=== PATIENT | female | born 1985 | race Caucasian/White ===

== ENCOUNTER 2018-07-17 11:40 | Outpatient (CLI) | payer OTHER ==
[~2018-07-17] VITALS: Ht 157.5 cm; Wt 89.2 kg
[~2018-07-17 11:40] MED LIST: HYDR-4011 PO; METH500T24 PO; PREN1TAB49
[2018-07-17 11:46] VITALS: Ht 157.5 cm; Wt 89.2 kg
--- NOTE | 2018-07-17 13:33 | PN ---
Triage Information Date/Time Reason for visit: DFM Weeks of Gestation This is a 33-year-old 2 para 1 at 26 weeks and 8 days of gestation with estimated date of delivery October 22, 2018 She presents with chief complaint of decreased movement Patient denies uterine contractions, denies vaginal bleeding or leaking fluid Past obstetrical history significant for for preeclampsia at 31 weeks of gestation /Para 2 para 1 Diabetes: none Hypertention: none Objective Heart Rate: 140's Heart Rate Comments heart rate tracing appropriate for gestational age Contractions: None Results/Medications Imaging Results PROCEDURE: US OB. CLINICAL INDICATION: Decreased movement TECHNIQUE: Multiple sonographic images of the pelvis were obtained. The images were reviewed on a PACS workstation. COMPARISON: No prior studies are available for comparison. FINDINGS: There is a single live intrauterine . cardiac activity is identified at a rate of 154 beats per minute. presentation is cephalic. Placenta is anterior grade 1. Biophysical profile score is as follows: Breathing 2 Movements 2 Tone 2 Fluid volume 2 Amniotic fluid index = 12.4 cm Total biophysical profile score = 8/8 IMPRESSION: Biophysical profile score = 8/8 RPTAT: HH .Fransisco Gan MD, Date Time Electronically viewed and signed by .Fransisco aGn MD, on 07/17/2018 12:26 .W/ CC: JP LOWERY MD [id number] PROCEDURE: Obstetric ultrasound CLINICAL INDICATION: Pain TECHNIQUE: Multiple transverse and longitudinal grayscale images of the pelvis were obtained transvaginally.. COMPARISON: same day FINDINGS: The cervix is closed with a length of 3.8 cm. RPTAT: AA IMPRESSION: Cervix length measures 3.8 cm. .Soy Beverly MD, Date Time Electronically viewed and signed by .Soy Beverly MD, MD on 07/17/2018 13:03 .S/ CC: JP LOWERY MD [phone] Disposition: Discharge Assessment/Plan Patient counseled to increase p.o. hydration kick count instructions were given Patient instructed to return in 48 hours for repeat NST and BPP Patient instructed to follow-up with her own CHIEF RELAY TESTER in 1 to 2 days JAMISON ALVARES MD July 17, 2018 13:33
== END 2018-07-17 13:28 | disposition home or self-care (01) ==
LOC: L-D 11:40 → OBT 11:40
PROVIDERS: ATTEND Obstetrics & Gynecology
DX: O36.8120 Decreased fetal movements, second trimester, not applicable or unspecified (principal); Z3A.26 26 weeks gestation of pregnancy
CPT/HCPCS: 76817; 76818; Z7500; G0463

== ENCOUNTER 2018-07-19 11:03 | Outpatient (CLI) | payer OTHER ==
[~2018-07-19] VITALS: Ht 160 cm; Wt 88.4 kg
[~2018-07-19 11:03] MED LIST changes: -HYDR-4011 PO; -METH500T24 PO
[2018-07-19 11:45] VITALS: BP 100/61; Ht 160 cm; Wt 88.4 kg
[2018-07-19] MEDS ORDERED: LABE200T25 PO (11:47)
--- NOTE | 2018-08-06 16:57 | PN ---
Triage Information Date/Time Reason for visit: DFM Weeks of Gestation 27 weeks and 1 day /Para -0-0-1 Diabetes: none Hypertention: none Objective Heart Rate: 140's Contractions: None Disposition: Discharge Assessment/Plan 33 years old -0-0-1 with single intrauterine at 27 weeks and 1 day with a KAZ of 10/17/2018 complaining of decreased movement. She denies nausea, vomiting, shortness of breath, chest pain, headache, visual changes, vaginal bleeding or LOF. -FHR: No sign of metabolic acidosis- Category I -Contractions: None -Ultrasound performed: Normal SANDRA -Symptoms and sign of labor, preeclampsia, kick count discussed with patient, she voiced understanding. All of her questions answered. -Patient was discharged home in stable condition with the appropriate discharge instructions provided. I would like patient to have close follow-up with her primary physician or outpatient clinic in 1-2 days or return to triage for worsening symptoms or any other urgent concerns. NAV ELMORE Aug 06, 2018 16:57
== END 2018-07-19 12:44 | disposition home or self-care (01) ==
LOC: OBT 11:03 → L-D 11:04 → OBT 12:44
PROVIDERS: ATTEND Obstetrics & Gynecology
DX: O36.8120 Decreased fetal movements, second trimester, not applicable or unspecified (principal); Z3A.27 27 weeks gestation of pregnancy
CPT/HCPCS: 76818; Z7500; G0463

== ENCOUNTER 2018-09-27 13:45 | Outpatient (CLI) | payer OTHER ==
[~2018-09-27 13:45] MED LIST changes: +ACET325T33 PO; +IBUP800T48 PO; +LABE200T25 PO; +METF500T3 PO
--- NOTE | 2018-09-27 16:25 | TRIAGE ---
OB Triage Datetime Report Generated by CPN: 09/27/2018 16:25 Datetime: 09/27/2018 16:05 EGA: 36.3 Datetime: 09/27/2018 15:00 Stage of : OB Triage Maternal Assessment Level of Consciousness: Keenly Alert, Responsive Labor Evaluation Frequency: 3UC/HR Monitor Mode: External Duration (sec)2399: 50-70 Quality: Mild Resting Tone [place]: Relaxed Heart Rate FHR Baseline Rate: 135 Monitor Mode: External US Variability: Moderate 6-25 bpm Accelerations: 15X15 Decelerations: None Category: Category I Pain Assessment Pain Scale: 0 Pain Goal: 3 Vaginal Exam Membrane Status: Intact Vaginal Bleeding: None Datetime: 09/27/2018 14:04 Assessment Type: Triage Maternal Assessment Level of Consciousness: DTR's/Clonus: DTRs 2+; No Clonus Headache: Denies Blurred Vision: No Respiratory Effort: Unlabored; Regular Rhythm; Equal Expansion Breath Sounds, Left: Clear and Equal Breath Sounds, Right: Clear and Equal Nausea/Vomiting: Denies RUQ Epigastric Pain: Denies Lower Extremities Edema: None Degree: None Upper Extremities Edema: None Degree: None Facial Edema: None Fall Risk Assessment History of Falling: (0) No Secondary Diagnosis: (0) No Ambulatory Aid: (0) Bedrest/Nurse Assist IV Therapy: (0) No Gait: (0) Normal/Bedrest/Immobile Mental Status: (0) Oriented to Own Ability Fall Score: 0 Fall Risk Score Definition: No Risk: No action required Datetime: 09/27/2018 14:03 Time of Arrival: 09/27/2018 13:34 EGA: 37.0 Arrived By: Ambulatory Arrived From: Office Chief Complaint: PT. SENT IN FOR EVAL. OF HBP Movement: Present Contractions: Denies/Absent Rupture of Membranes: Denies Vaginal Bleeding: None Vaginal Discharge: Denies Recent Sexual Intercouse: Denies Abdominal Trauma: Not Applicable Patient Complaints: None Time Provider Notified: 09/27/2018 15:37 Provider Notified: MONTSERRAT Initial Plan: BPP/EFW/PIH PANEL Datetime: 09/27/2018 14:02 Monitor Mode: External Monitor Mode: External US Datetime: 07/19/2018 11:46 Stage of : OB Triage Labor Evaluation Frequency: 0 Monitor Mode: External Pattern: Normal: <= 5 Contractions in 10 Minutes Resting Tone [place]: Relaxed Heart Rate FHR Baseline Rate: 145 Monitor Mode: External US Variability: Moderate 6-25 bpm Accelerations: 10X10 Decelerations: None Category: Category II Pain Presence: None/Denies Datetime: 07/19/2018 11:36 Stage of : OB Triage Assessment Type: Triage Time of Arrival: 07/19/2018 10:56 EGA: 27.0 Arrived By: Ambulatory Arrived From: Home Chief Complaint: F/UP NST BPP FOR DFM Movement: Decreased Contractions: Denies/Absent Rupture of Membranes: Denies Vaginal Bleeding: None Vaginal Discharge: Denies Recent Sexual Intercouse: Denies Abdominal Trauma: Not Applicable Patient Complaints: None Time Provider Notified: 07/19/2018 12:35 Provider Notified: dr. palm Initial Plan: NST BPP Maternal Assessment Level of Consciousness: Fully Conscious DTR's/Clonus: DTRs 2+; No Clonus Headache: Denies Blurred Vision: No Respiratory Effort: Unlabored; Regular Rhythm; Equal Expansion Breath Sounds, Left: Clear and Equal Breath Sounds, Right: Clear and Equal Nausea/Vomiting: Denies RUQ Epigastric Pain: Denies Lower Extremities Edema: None Degree: None Upper Extremities Edema: None Degree: None Facial Edema: None Fall Risk Assessment History of Falling: (0) No Secondary Diagnosis: (0) No Ambulatory Aid: (0) Bedrest/Nurse Assist IV Therapy: (0) No Gait: (0) Normal/Bedrest/Immobile Mental Status: (0) Oriented to Own Ability Fall Score: 0 Fall Risk Score Definition: No Risk: No action required Monitor Mode: External Monitor Mode: External US Pain Assessment Pain Scale: 0 Pain Presence: None/Denies Pain Assessment Comments: 0 0 Datetime: 07/17/2018 13:17 Labor Evaluation Frequency: 0 Monitor Mode: External Heart Rate FHR Baseline Rate: 140 Monitor Mode: External US FHR Baseline Changes: No Baseline Change Variability: Moderate 6-25 bpm Accelerations: 15X15 Decelerations: None Category: Category I Pain Presence: None/Denies Datetime: 07/17/2018 11:57 EGA: 26.5 Datetime: 07/17/2018 11:45 Assessment Type: Triage Maternal Assessment Level of Consciousness: Fully Conscious DTR's/Clonus: DTRs 2+; No Clonus Headache: Denies Blurred Vision: No Respiratory Effort: Unlabored; Regular Rhythm; Equal Expansion Breath Sounds, Left: Clear and Equal Breath Sounds, Right: Clear and Equal Nausea/Vomiting: Denies RUQ Epigastric Pain: Denies Lower Extremities Edema: None Degree: None Upper Extremities Edema: None Degree: None Facial Edema: None Fall Risk Assessment History of Falling: (0) No Secondary Diagnosis: (0) No Ambulatory Aid: (0) Bedrest/Nurse Assist IV Therapy: (0) No Gait: (0) Normal/Bedrest/Immobile Mental Status: (0) Oriented to Own Ability Fall Score: 0 Fall Risk Score Definition: No Risk: No action required Datetime: 07/17/2018 11:31 Time of Arrival: 07/17/2018 11:31 EGA: 26.1 Chief Complaint: PT CAME IN C/O DFM SINCE LAST NIGHT Movement: Decreased Contractions: Denies/Absent Additional Patient Complaints: NONE Time Provider Notified: 07/17/2018 11:48 Provider Notified: MONTSERRAT Initial Plan: NST, BPP
--- NOTE | 2018-09-27 18:58 | PN ---
Triage Information Date/Time Reason for visit: Antepartum testing care for chronic hypertension Weeks of Gestation 36 weeks 3 days /Para -0-0-1 Diabetes: none Hypertention: essential Objective Heart Rate: 140's Contractions: None Results/Medications Result Diagram: 09/27/18 1429 09/27/18 1429 Results 24 hrs Laboratory Tests Test 09/27/18 13:45 09/27/18 14:29 Urine Color YELLOW Urine Clarity SLIGHTLY CLOUDY A Urine pH 6.0 Urine Specific [place] 1.010 Urine Ketones NEGATIVE Urine Nitrite NEGATIVE Urine Bilirubin NEGATIVE Urine Urobilinogen NEGATIVE Urine Leukocyte Esterase NEGATIVE Urine Microscopic RBC 0 Urine Microscopic WBC 2 Urine Bacteria FEW A Urine Hemoglobin NEGATIVE Urine Glucose NEGATIVE Urine Total Protein NEGATIVE White Blood Count 6.8 # Red Blood Count 4.43 Hemoglobin 12.9 Hematocrit 37.9 Mean Corpuscular Volume 85.6 Mean Corpuscular Hemoglobin 29.1 Mean Corpuscular Hemoglobin Concent 34.0 Red Cell Distribution Width 13.1 Platelet Count 197 Mean Platelet Volume 10.0 # Immature Granulocytes % 0.400 Neutrophils % 70.5 Lymphocytes % 20.6 Monocytes % 7.5 Eosinophils % 0.7 Basophils % 0.3 Nucleated Red Blood Cells % 0.0 Immature Granulocytes # 0.030 Neutrophils # 4.8 Lymphocytes # 1.4 Monocytes # 0.5 Eosinophils # 0.1 Basophils # 0.0 Nucleated Red Blood Cells # 0.0 Prothrombin Time 11.8 L Prothrombin Time Ratio 0.9 INR International Normalized Ratio 0.86 Activated Partial Thromboplast Time 31.2 Fibrinogen 634.0 H Sodium Level 137 Potassium Level 4.4 Chloride Level 105 Carbon Dioxide Level 25 Anion Gap 7 Blood Urea Nitrogen 11 Creatinine 0.75 Est Glomerular Filtrat Rate mL/min > 60 Glucose Level 98 Uric Acid 5.9 Calcium Level 9.9 Total Bilirubin 0.3 Direct Bilirubin 0.00 Indirect Bilirubin 0.3 Aspartate Amino Transf (AST/SGOT) 25 Alanine Aminotransferase (ALT/SGPT) 24 Alkaline Phosphatase 74 Total Protein 6.8 Albumin 3.6 Globulin 3.20 Albumin/Globulin Ratio 1.12 Disposition: Discharge Assessment/Plan 33 years old -0-0-1 with single intrauterine at 36 weeks and 3 days with chronic hypertension and previous delivery referred to triage for elevated blood pressure reading off phase antepartum test. She states good movement. She denies nausea, vomiting, shortness of breath, chest pain, headache, visual changes, vaginal bleeding or LOF. -FHR: No sign of metabolic acidosis- Category I -Contractions: None -She is currently on labetalol 200 mg twice daily, recommend continue labetalol with same dose -She has been scheduled for repeat at 37 weeks -Ultrasound performed: Normal SANDRA, BPP 8 out of 8 -Symptoms and sign of labor, preeclampsia, kick count discussed with patient, she voiced understanding. All of her questions answered. -Patient was discharged home in stable condition with the appropriate discharge instructions provided. I would like patient to have close follow-up with her primary physician or outpatient clinic in 1-2 days or return to triage for worsening symptoms or any other urgent concerns. NAV ELMORE Sep 27, 2018 18:58
== END 2018-09-27 16:35 | disposition home or self-care (01) ==
LOC: OBT 13:45 → L-D 13:45 → OBT 16:35
PROVIDERS: ATTEND Obstetrics & Gynecology
DX: O10.013 Pre-existing essential hypertension complicating pregnancy, third trimester (principal); Z3A.36 36 weeks gestation of pregnancy
CPT/HCPCS: 76815; 76818; 80053; 81001; 81003; 84560; 85025; 85384; 85610; 85730; G0463

== ENCOUNTER 2018-10-02 12:10 | Inpatient (IN) | payer OTHER ==
[~2018-10-02] VITALS: Ht 157.5 cm; Wt 93.8 kg
--- NOTE | 2018-10-02 12:35 | PREAC ---
Date/Time of Note Date/Time of Note DATE: 10/02/18 TIME: 12:34 Anesthesia Eval and Record Evaluation Time Pre-Procedure Interview DATE: 10/02/18 TIME: 12:34 Age 33 Sex female NPO: 8 hrs Preoperative diagnosis repeat c section Planned procedure csection Past Medical History Past Medical History: Includes Cardio: HTN : Gestational age: (37.1), Gestational diabetes Surgery & Anesthesia Issues No known issue Meds Anticoagulation: No Beta Mitchell within 24 hr: No Reason Beta Mitchell not given: Pt. not on B-Mitchell Reported Medications Labetalol Hcl* (Labetalol Hcl*) 200 Mg Tablet, 200 MG PO BID, TAB 07/19/18 Vits W-Ca,Fe,Fa(<1MG) () 1 Tab Tablet, DAILY 03/23/11 Meds reviewed: Yes Allergies Uncoded Allergies: NKDA (Allergy, Unknown, 04/14/18) Allergies Reviewed: Yes Labs/Studies Labs Reviewed: Reviewed by anesthesiologist test: Positive Studies: ECG (n/a), CXR (n/a) Pre-procedure Exam Airway: Adequate mouth opening Mallampati: Mallampati I Teeth: Normal Lung: Normal Heart: Normal ASA Physical Status ASA physical status: 2 Emergency: None Planned Anesthetic Neuraxial: Spinal Planned Pain Management Single shot nerve block Pre-operative Attestations Prior to commencing anesthesia and surgery, the patient was re-evaluated, there was verification of: *The patient's identity *The results of appropriate recent lab work and preoperative vital signs *The above evaluation not changing prior to induction *Anesthetic plan, risk benefits, alternative and complications discussed with patient/family; questions answered; patient/family understands, accepts and wis hes to proceed. RODOLFO AMADOR MD Oct 02, 2018 12:35
[2018-10-02] MEDS ORDERED: LACTATED RINGER'S 1,000 ML IV SCH ×2 (12:37→18:45)
[2018-10-02 12:40] VITALS: Ht 157.5 cm; Wt 93.8 kg
[2018-10-02 12:46] VITALS: BP 140/74; PULSE 74; RESP 18
[2018-10-02] MEDS ORDERED: CITRIC ACID/NA CITRATE 30 ML CUP PO ONE (13:00)
[2018-10-02] MEDS ORDERED: METHYLERGONOVINE 0.2 MG INJ IM PRN ×2 (13:00→19:00)
[2018-10-02] MEDS ORDERED: CARBOPROST 250 MCG INJ IM PRN ×2 (13:00→19:00)
[2018-10-02] MEDS ORDERED: CEFAZOLIN 2 GM/50 ML (PMX) 50 ML IVPB SCH (13:00)
[2018-10-02] MEDS ORDERED: MISOPROSTOL 200 MCG TAB PR PRN ×2 (13:00→19:00)
[2018-10-02] MEDS ORDERED: OXYTOCIN 30 UNITS/LR 500 ML IV PRN ×2 (13:00→19:00)
[2018-10-02] MEDS ORDERED: AZITHROMYCIN 500MG/NS (PMX) 250 ML IV SCH (13:00)
[2018-10-02] MEDS ORDERED: METOCLOPRAMIDE 10 MG INJ ONE (14:03)
[2018-10-02] MEDS ORDERED: morphine SULFATE/PF (10 MG/10 ML) INJ ONE (14:03)
[2018-10-02] MEDS ORDERED: ONDANSETRON 4 MG INJ ONE (14:03)
[2018-10-02] MEDS ORDERED: KETOROLAC 30 MG INJ ONE (14:03)
[2018-10-02] MEDS ORDERED: OXYTOCIN 30 UNITS/LR 500 ML IV ONE (15:23)
[2018-10-02] MEDS ORDERED: KETOROLAC 30 MG INJ IV STA (15:28)
[2018-10-02] MEDS ORDERED: ACETAMINOPHEN 500 MG TAB PO STA (15:28)
--- NOTE | 2018-10-02 15:28 | HP ---
Date/Time of Note Date/Time of Note DATE: 10/02/18 TIME: 15:25 OB - History Hx of Present Free Text/Dictation 33-year-old female 2 para 1 with history of previous admitted for repeat section at 37 weeks because of hypertension Chief Complaint: She has no complaint of headache blurred vision or epigastric pain Last Menstrual Period: Dec 31, 2008 Estimated Due Date: Oct 22, 2018 : 2 Para: 1 Care: Good Care Ultrasounds: Normal mid trimester US Obstetrical Complications: Gestational Diabetes, Gestational Hypertension, Other (Advanced maternal he) Medical Complications: Other (Chronic hypertension) Past Family/Social History * Past Medical, Surgical, Family and Obstetric Histories reviewed from chart. Rubella: immune RPR/VDRL: Negative GBS Status: Negative HBsAG: Negative OB Admission Exam Vital Signs Vital Signs Vital Signs Date Temp Pulse Resp B/P (MAP) Pulse Ox O2 O2 Flow FiO2 Time Delivery Rate 10/02/18 98.1 74 18 140/74 99 Room Air 12:46 (96) Physical Exam HEENT: WNL Heart: Rhythm Normal Lungs: Clear, Equal Abdomen: WNL Extremities: Normal Reflexes: Normal Cervical Dilatation: None Effacement: 0% Station: -3 Membranes: Intact Heart Rate: 140's Accelerations: Accelerations Present Decelerations: Early Decelerations Varibility: Marked Contractions on Admission: None Last 72 hours Lab Results CBC & BMP 10/02/18 12:00 Liver Function Test 10/02/18 12:00 Alanine Aminotransferase (ALT/SGPT) 20 Albumin 3.7 Alkaline Phosphatase 80 Aspartate Amino Transf (AST/SGOT) 23 Direct Bilirubin 0.00 Total Protein 7.2 OB Assessment/Plan Reason for admission: section Other Assessment: Class B diabetes 37+ weeks gestation Chronic hypertension Previous Other plan: Repeat JP LOWERY MD Oct 02, 2018 15:28
[2018-10-02] MEDS ORDERED: AZITHROMYCIN 500MG/NS (PMX) 250 ML IVPB ONE (15:30)
--- NOTE | 2018-10-02 15:46 | OPR ---
Operative Report Planned Procedure Free Text/Dictation 33-year-old female at 37.1 weeks gestation admitted for repeat section because of hypertension and diabetes Procedure date Oct 02, 2018 Procedure(s) Repeat delivery Performed by see signature line Wrap Knitting Machine Operator: ROGER MEJIA MD Anesthesiologist: RODOLFO AMADOR MD Pre-procedure diagnosis 37+ weeks gestation Previous Chronic hypertension [id number] Anesthesia Type: [id number] spinal Post-Procedure Post-procedure diagnosis Status post Findings Live Baby in OT position Clear amniotic fluid Normal-appearing right and left fallopian tubes and ovaries Estimated Blood Loss: 500 - 600 mls Specimen(s) none Grafts/Implant(s) none Complication(s) none Pt Condition post procedure: stable Disposition: PACU Procedure Description Under satisfactory anaesthesia a Pfannenstiel incision was made two fingerbreadth above and parallel to the symphysis of pubis around the previous scar and previous scar was removed Incision was extended laterally to the border of the Recti muscles on either sides. Incision was carried down with sharp and blunt dissection until fascia w as reached. Anterior Recti muscle fascia was incised in mid portion and incision extended laterally to the border of skin incision. Fascia was mobilized from muscle superiorly and Recti muscles were from midline using sharp and blunt dissection. Peritoneum was visualized; Avoiding bowel and bladder it was incised . Incision was extended superiorly and inferiorly. Bladder blade was placed. Posterior peritoneum covering the lower segment of the uterus and lower segment of the uterus were incised.Low transverse uterine incision was made on lower segment of the uterus. Incision extended laterally to the border of Round Lig. on either sides and baby was delivered from OT. position . Amniotic fluid appeared clear. Cord blood was obtained and cord had 3 vessels . Placenta was delivered spontaneously and appeared intact and complete. Intrauterine cavity was rubbed with a laparotomy sponge. Uterine incision was closed in 2 layers using running stitches of No1 Monocryl. Hemostasis appeared secure. Ovaries and Fallopian tubes were within normal limits. Announcing needle, lap sponge and instrument count to be correct abdomen was closed in layers as follows: Peritoneum and Recti muscles with running stitches of 2-0 Vicryl. Fascia with running stitch of No 1 PDS. Subcutaneous tissue with running stitches of 2-0 Monocryl and skin was closed using li. Patient tolerated the procedure well and was transferred to [facility] in good condition. JP LOWERY MD Oct 02, 2018 15:46
[2018-10-02] MEDS ORDERED: morphine 2 MG INJ IV PRN ×6 (16:00)
[2018-10-02] MEDS ORDERED: ONDANSETRON 4 MG INJ IV PRN ×2 (16:00)
[2018-10-02] MEDS ORDERED: KETOROLAC 30 MG INJ IV PRN (16:00)
[2018-10-02] MEDS ORDERED: DIPHENHYDRAMINE 50 MG INJ IV PRN ×2 (16:00)
[2018-10-02] MEDS ORDERED: NALOXONE (0.4 MG/ML) INJ IV PRN (16:00)
[2018-10-02 18:55] VITALS: BP 135/81; PULSE 73; RESP 18
[2018-10-02] MEDS ORDERED: GLUCAGON 1 MG INJ IM PRN (19:00)
[2018-10-02] MEDS ORDERED: NA PHOSPHATE/BIPHOS 133 ML ENEMA PR PRN (19:00)
[2018-10-02] MEDS ORDERED: GLUCOSE GEL 15 GRAM TUBE BUCCAL PRN (19:00)
[2018-10-02] MEDS ORDERED: GLUCOSE GEL 15 GRAM TUBE PO PRN ×2 (19:00)
[2018-10-02] MEDS ORDERED: DEXTROSE 50% 50 ML SYRINGE IV PRN ×2 (19:00)
[2018-10-02] MEDS ORDERED: HYDROCODONE/APAP (5/325) TAB PO PRN (19:00)
[2018-10-02] MEDS ORDERED: LANOLIN HPA 1 PKT TOP PRN (19:00)
[2018-10-02] MEDS: ACCU-CHEK XX SCH ×2 (19:35→19:55)
[2018-10-02 20:00] VITALS: BP 130/73; PULSE 77; RESP 20
[2018-10-02] MEDS: SENNA/DOCUSATE NA (8.6MG/50MG) TAB PO SCH (21:00)
[2018-10-02] MEDS: IBUPROFEN 800 MG TAB PO SCH (22:00)
[2018-10-02] MEDS: CEFAZOLIN 2 GM/50 ML (PMX) 50 ML IVPB SCH (22:11)
[2018-10-02] MEDS: metFORMIN (XR) 500 MG TAB PO SCH (22:59)
[2018-10-02] MEDS: LABETALOL 200 MG TAB PO SCH (23:01)
[2018-10-03] MEDS: CLINDAMYCIN 300 MG CAP PO SCH ×5 (00:46→23:59)
--- NOTE | 2018-10-03 00:58 | OPPN ---
Date/Time of Note Date/Time of Note DATE: 10/03/18 TIME: 00:57 Anesthesia Follow up Anesthesia Follow up Last documented vital signs Vital Signs Date Temp Pulse Resp B/P (MAP) Pulse Ox O2 O2 Flow FiO2 Time Delivery Rate 10/02/18 98.2 77 20 130/73 98 Room Air 20:00 (92) Respiratory function: WNL Cardiovascular function: WNL Comments A 33 year female s/p spinal duramorph for post op pain, POD #1 i. pt is doing fine, No headache, pain , N/V, itching, SOB, neural deficit RODOLFO AMADOR MD Oct 03, 2018 00:58
[2018-10-03 04:24] VITALS: BP 133/76; PULSE 83; RESP 20
[2018-10-03] MEDS: CEFAZOLIN 2 GM/50 ML (PMX) 50 ML IVPB SCH ×2 (05:36→13:57)
[2018-10-03] MEDS: KETOROLAC 30 MG INJ IV PRN ×2 (05:37→13:52)
[2018-10-03] MEDS: IBUPROFEN 800 MG TAB PO SCH ×3 (06:00→21:45)
--- NOTE | 2018-10-03 06:08 | PAC ---
Date/Time of Note Date/Time of Note DATE: 10/03/18 TIME: 06:07 Post-Anesthesia Notes Post-Anesthesia Note Last documented vital signs Vital Signs Date Temp Pulse Resp B/P (MAP) Pulse Ox O2 O2 Flow FiO2 Time Delivery Rate 10/03/18 98.4 83 20 133/76 97 Room Air 04:24 (95) 10/02/18 98 20:00 Activity: WNL Respiratory function: WNL Cardiovascular function: WNL Mental status: Baseline Pain reasonably controlled: Yes Hydration appropriate: Yes Nausea/Vomiting absent: No RODOLFO AMADOR MD Oct 03, 2018 06:07
[2018-10-03 08:00] VITALS: BP 121/72; PULSE 84; RESP 20
[2018-10-03] MEDS: LABETALOL 200 MG TAB PO SCH ×2 (09:00→21:45)
[2018-10-03] MEDS: metFORMIN (XR) 500 MG TAB PO SCH ×2 (09:00→21:44)
[2018-10-03] MEDS: SENNA/DOCUSATE NA (8.6MG/50MG) TAB PO SCH ×2 (09:46→21:45)
[2018-10-03] MEDS: ACCU-CHEK XX SCH ×4 (09:50→19:55)
--- NOTE | 2018-10-03 10:27 | NSTRPT ---
NST Information Datetime Report Generated by CPN: 10/03/2018 10:27 Datetime: 09/28/2018 09:26 NST Information EGA: 36.4 Test Number: 10 Time on Monitor: 09/28/2018 09:47 Time off Monitor: 09/28/2018 10:11 NST Duration (Min): 24 Reason for NST: Chronic Hypertension; Diabetes Mellitus; Other Reason for NST Other: A1DM Test and Monitor Explained: Monitor Explained; Test Explained; Verbalized Understanding Pulse: 66 Resp: 18 SBP: 123 DBP: 79 Test Evaluation NST Interventions: None Patient States Movement: Present Contraction Frequency: NONE FHR Baseline : 140 Variability: Moderate 6-25bpm Accelerations: 15X15 Decelerations: None FHR Category: Category I NST Results: Reactive Comments: To u/s. SANDRA 8.0cm. CEPHALIC. FBS:82 Electronically Signed By E-Signature: with User ID: [id number], A ddendum/Amendment: signed for Dr. Tafti Datetime: 09/27/2018 16:05 NST Information EGA: 36.1 Datetime: 09/25/2018 10:20 NST Information EGA: 36.5 NST Duration (Min): 21 Datetime: 09/21/2018 09:43 NST Information EGA: 36.1 NST Duration (Min): 33 Datetime: 09/18/2018 09:16 NST Information EGA: 35.5 NST Duration (Min): 23 Datetime: 09/14/2018 09:47 NST Information EGA: 35.1 NST Duration (Min): 45 Datetime: 09/11/2018 11:02 NST Information EGA: 34.5 NST Duration (Min): 23 Datetime: 09/06/2018 13:28 NST Information EGA: 34.0 NST Duration (Min): 34 Datetime: 09/04/2018 09:08 NST Information EGA: 33.5 NST Duration (Min): 26 Datetime: 08/30/2018 08:28 NST Information EGA: 33.0 NST Duration (Min): 22 Datetime: 08/28/2018 10:30 NST Information EGA: 32.5 NST Duration (Min): 26
[2018-10-03] MEDS ORDERED: BISACODYL 10 MG SUPP PR ONE (11:30)
--- NOTE | 2018-10-03 15:30 | PN ---
Date/Time of Note Date/Time of Note DATE: 10/03/18 TIME: 15:29 Assessment/Plan VTE Prophylaxis VTE Prophylaxis Intervention: ambulation Lines/Catheters IV Catheter Type (from Nrsg): Peripheral IV Assessment/Plan Assessment/Plan Status post postop day #1 Continue to ambulate patient on advance diet and monitor vital signs Subjective 24 Hr Interval Summary No bowel movement Passing flatus Constitutional: no complaints, improved, ambulates, BM, flatus, urine output Pain Control: well controlled Exam/Review of Systems Vital Signs Vitals Vital Signs Date Temp Pulse Resp B/P (MAP) Pulse Ox O2 O2 Flow FiO2 Time Delivery Rate 10/03/18 98.4 83 20 133/76 Room Air 04:24 (95) 10/02/18 98 20:00 Intake and Output 10/02/18 10/02/18 10/03/18 1515:00 23:00 07:00 IntakeIntake Total 1000 ml OutputOutput Total 800 ml 400 ml BalanceBalance 1000 ml -800 ml -400 ml Exam Free Text/Dictation Abdomen is soft and nontender with present bowel sounds Abdomen does not seem distended Incision is covered Constitutional: alert, oriented, well developed Psych: no complaints, nl mood/affect Head: normocephalic, atraumatic Eyes: nl conjunctiva, EOMI, nl lids, nl sclera ENMT: nl external ears & nose, nl lips & teeth, nl nasal mucosa & septum, mucosa pink and moist Neck: supple, non-tender Respiratory: clear to auscultation, normal air movement Cardiovascular: regular rate and rhythm, nl pulses Gastrointestinal: soft, nl liver, spleen, non-tender Musculoskeletal: nl extremities to inspection, nl gait and stance Extremities: normal pulses Neurological: FACILITIES MAINTENANCE SUPERVISOR II-XII intact, nl mental status, nl speech, nl strength Skin: nl turgor, rash or lesions Lymph: nl lymph nodes Results Result Diagram: 10/03/18 0449 10/02/18 1200 JP LOWERY MD Oct 03, 2018 15:30
[2018-10-03] MEDS: OXYCODONE/ACETAMINOPHEN (5/325) TAB PO PRN (19:33)
--- NOTE | 2018-10-03 19:36 | DELSUM ---
Delivery Summary A-C Datetime Report Generated by CPN: 10/03/2018 19:36 DELIVERY PERSONNEL Life Skills Instructor: Shipman, Shaista MATERNAL INFORMATION Delivery Anesthesia: Spinal Medications in Delivery: see anesthesia Placenta Cultured: No Maternal Complications: None LABOR SUMMARY EDC: 10/22/2018 00:00 No. Babies in Womb: 1 Attempted: No Labor Anesthesia: None LABOR INFORMATION Reason for Induction: Not Applicable Group B Beta Strep: Negative Antibiotics # of Doses: 0 Steroids Given: None Reason Steroids Not Administered: Not Applicable MEMBRANES Membranes Rupture Method: Artificial Rupture of Membranes: 10/02/2018 14:58 Length of Rupture (hr): 0.00 Amniotic Fluid Color: Clear Amniotic Fluid Amount: Moderate Amniotic Fluid Odor: None STAGES OF LABOR Stage 3 hr: 0 Stage 3 min: 1 VAGINAL DELIVERY Episiotomy: None CSECTION DELIVERY Primary Indication: Repeat Elective Secondary Indication: N/A CSection Urgency: Non Elective CSection Incidence: Repeat Labor: No Labor Elective: N/A CSection Incision: Lower Uterine Transverse BABY A INFORMATION Delivery Date/Time: 10/02/2018 14:58 Method of Delivery: Born in Route : No : N/A Forceps: N/A Vacuum Extraction: N/A Shoulder Dystocia : N/A SHOULDER DYSTOCIA BABY A Infant Delivery Date/Time: 10/02/2018 14:58 PRESENTATION/POSITION BABY A Presentation: Cephalic Cephalic Presentation: Vertex Breech Presentation: N/A PLACENTA INFORMATION BABY A Placenta Delivery Time : 10/02/2018 14:59 Placenta Method of Delivery: Manual Removal Placenta Status: Delivered SCORES BABY A Heart Rate 1 min: >100 bpm Resp Effort 1 min: Good Cry Reflex Irritability 1 min: Cough/Sneeze/Pulls Away Muscle Tone 1 min: Active Motion Color 1 min: Blue/Pale Resuscitation Effort 1 min: Tactile Stimulation SCORE 1 MIN: 8 Heart Rate 5 min: >100 bpm Resp Effort 5 min: Good Cry Reflex Irritability 5 min: Cough/Sneeze/Pulls Away Muscle Tone 5 min: Active Motion Color 5 min: Body [place], Extremit Blue Resuscitation Effort 5 min: Tactile Stimulation SCORE 5 MIN: 9 INFORMATION BABY A Gestational Age at Delivery: 37.1 Gestational Status: Early Term- 37- 38.6 Weeks Infant Outcome : Liveborn, with signs of life Condition : Stable Infant Sex: Male IDENTIFICATION/MEDS BABY A ID Band Number: [id number] ID Band Location: Right Leg; Left Arm Sensor Applied: Yes Sensor Number: [id number] Sensor Location : Cord Clamp Vitamin K Given : Aquamephyton 0.5 mg IM Erythromycin Given: Given Both Eyes WEIGHT/LENGTH BABY A Infant Birthweight (gm): 2605 Infant Weight (lb): 5 Infant Weight (oz): 12 Infant Length (in): 19.00 Infant Length (cm): 48.26 CORD INFORMATION BABY A No. Cord Vessels: 3 Nuchal Cord : N/A Cord Blood Taken: Yes Infant Suction: Mouth; Nose ASSESSMENT BABY A Complications: None Physical Findings at Delivery: Within Normal Limits Respirations: Appears Normal [facility] Laster/ALS Called : No Care By: RT/ RN Transferred To: Remains with Mother
[2018-10-03 20:45] VITALS: BP 131/74; PULSE 77; RESP 18
[2018-10-04 00:15] VITALS: BP 125/70; PULSE 76; RESP 17
[2018-10-04 03:54] VITALS: BP 118/58; PULSE 75; RESP 18
[2018-10-04] MEDS: IBUPROFEN 800 MG TAB PO SCH ×3 (05:47→21:27)
[2018-10-04] MEDS: CLINDAMYCIN 300 MG CAP PO SCH ×4 (05:47→23:48)
[2018-10-04] MEDS: ACCU-CHEK XX SCH ×4 (06:00→22:28)
[2018-10-04 08:00] VITALS: BP 140/84; PULSE 68; RESP 18
[2018-10-04] MEDS: SENNA/DOCUSATE NA (8.6MG/50MG) TAB PO SCH ×2 (08:38→21:27)
[2018-10-04] MEDS: LABETALOL 200 MG TAB PO SCH ×2 (08:38→21:30)
[2018-10-04] MEDS: metFORMIN (XR) 500 MG TAB PO SCH ×2 (08:39→22:30)
--- NOTE | 2018-10-04 13:51 | PD.PPDC ---
[employer] [facility] Discharge Instruction Provider Information Physician Information 33-year-old female underwent repeat at 37 weeks because of chronic hypertension and diabetes Diagnosis [id number] Final Diagnosis: [id number] Status post repeat Condition [id number] Patient Condition: Msmeb1b Good Diet [id number] Diet: Lxaak0w Resume Regular Diet Activity/Restrictions [id number] Activity: Bwjgs8o Normal Activity May Shower [id number] Restrictions: Hohrc0y Nothing in the Vagina [id number] Return to Work or School: Ggwzh0y Dec 04, 2018 Wound/Drain Care Instructions [id number] Wound/Drain Care Instructions: Cgagf3m Keep clean and dry Follow-up Follow-up with Physician: 1, 4, Day/Days (In clinic for blood pressure check) Return to clinic for [id number] OB Instructions: Vyzwv9g Breast Tenderness Depression Blurried Vision Headache Comment: Pelvic rest and no hard activity for 2 months [id number] Surgical Instructions: Mwwut9n Incisional Drainage Incisional Redness JP LOWERY MD Oct 04, 2018 13:51
--- NOTE | 2018-10-04 13:56 | DS ---
Date/Time of Note Date/Time of Note Home today or following day DATE: 10/04/18 TIME: 13:55 Obstetrical Discharge Record Final Diagnosis Final Diagnosis: Term delivered Other Final Diagnosis Status post repeat Section Section: Repeat Complications Gestational Diabetes, Preg induced Hypertension, Other (Possible chronic hypert ension) Condition on Discharge Physical Assessment Last Vitals: See nurse's notes Voiding: Yes Bowel Movement: Yes Breast: Soft, non-tender, Filling Fundus: Firm Abdomen and Incision: Abdomen is soft with present bowel sounds Incision appears to be healing well without induration and or erythema Calf Tenderness: No Patient Condition: Good JP LOWERY MD Oct 04, 2018 13:56
--- NOTE | 2018-10-04 13:58 | DS ---
Date/Time of Note Date/Time of Note DATE: 10/04/18 TIME: 13:56 Discharge Summary Admission/Discharge Info Admit Date/Time Oct 02, 2018 at 12:10 Discharge Date/Time 33-year-old female had repeat Discharge Diagnosis Status post repeat diabetes and chronic hypertension Patient Condition: Good Procedures Repeat delivery Hx of Present Illness 33-year-old female underwent repeat section at 37 weeks because of high blood pressure and diabetes Hospital Course She had uncomplicated hospitalization course Vital signs remained stable as well as blood sugars Complications and was tolerating diet She was discharged home on third day with good prognosis and condition Home Meds Active Scripts Metformin* (Glucophage* XR) 500 Mg Tab.sr.24h, 500 MG PO BID, #120 6 Refills Prov:JP LOWERY MD 10/04/18 Ibuprofen* (Motrin*) 800 Mg Tab, 800 MG PO Q8, #60 TAB 0 Refills Prov:JP LOWERY MD 10/04/18 Acetaminophen* (Tylenol*) 325 Mg Tablet, 650 MG PO Q6H PRN for MILD PAIN(1-3)OR ELEVATED TEMP, #60 TAB 0 Refills Prov:JP LOWERY MD 10/04/18 Labetalol Hcl* (Labetalol Hcl*) 200 Mg Tablet, 200 MG PO BID, #120 TAB 2 Refills Prov:JP LOWERY MD 10/04/18 Reported Medications Vits W-Ca,Fe,Fa(<1MG) () 1 Tab Tablet, DAILY 03/23/11 Discontinued Reported Medications Labetalol Hcl* (Labetalol Hcl*) 200 Mg Tablet, 200 MG PO BID, TAB 07/19/18 Follow-up Plan She was asked to refer to clinic in 4 days for staple removal She was also asked to pelvic rest no hard activity for 2 months Was also asked to take her medications at home Primary Care Provider Care Physician No Primary Time spent on discharge: > 30 minutes Pending Labs Laboratory Tests Test 10/03/18 16:35 10/03/18 21:05 10/04/18 07:04 10/04/18 11:10 Bedside 91 115 86 101 Glucose mg/dL (70-220) mg/dL (70-220) mg/dL (70-220) mg/dL (70-220) JP LOWERY MD Oct 04, 2018 13:58
[2018-10-04] MEDS ORDERED: ACETAMINOPHEN 325 MG TAB PO PRN (14:00)
[2018-10-04 16:00] VITALS: BP 134/82; PULSE 71; RESP 18
[2018-10-04] MEDS: OXYCODONE/ACETAMINOPHEN (5/325) TAB PO PRN ×2 (18:45)
[2018-10-04 20:20] VITALS: BP 147/92; PULSE 73; RESP 18
[2018-10-05 04:00] VITALS: BP 133/85; PULSE 79; RESP 17
[2018-10-05] MEDS: ACCU-CHEK XX SCH ×2 (06:00→09:50)
[2018-10-05] MEDS: CLINDAMYCIN 300 MG CAP PO SCH ×2 (06:37→12:30)
[2018-10-05] MEDS: IBUPROFEN 800 MG TAB PO SCH (06:37)
[2018-10-05 08:00] VITALS: BP 146/82; PULSE 75; RESP 18
[2018-10-05] MEDS ORDERED: DIPHTH/TET/ACEL PERTUSS (ADULT) 0.5 ML VIAL IM* ONE (09:00)
[2018-10-05] MEDS ORDERED: MEASLES,MUMPS,RUBELLA VACCINE INJ SC* ONE (09:00)
[2018-10-05] MEDS: metFORMIN (XR) 500 MG TAB PO SCH (09:07)
[2018-10-05] MEDS: SENNA/DOCUSATE NA (8.6MG/50MG) TAB PO SCH (09:08)
[2018-10-05] MEDS: LABETALOL 200 MG TAB PO SCH (09:08)
[2018-10-05] MEDS: OXYCODONE/ACETAMINOPHEN (5/325) TAB PO PRN (12:34)
== END 2018-10-05 15:00 | disposition home or self-care (01) | DRG 786 ==
LOC: L-D 12:10 → PP1 18:38 → MS1 19:32
PROVIDERS: ADMIT Obstetrics & Gynecology; ATTEND Obstetrics & Gynecology
PROC: 10D00Z1 Extraction of Products of Conception, Low, Open Approach (ICD-10-PCS; principal; 2018-10-02 14:00)
DX: O65.5 Obstructed labor due to abnormality of maternal pelvic organs (principal); O24.12 Pre-existing type 2 diabetes mellitus, in childbirth; O10.92 Unspecified pre-existing hypertension complicating childbirth; O34.211 Maternal care for low transverse scar from previous cesarean delivery; E11.9 Type 2 diabetes mellitus without complications; Z3A.37 37 weeks gestation of pregnancy; Z37.0 Single live birth
CPT/HCPCS: 80053; 81003; 82962; 84560; 85025; 85384; 85610; 85730; 86592; 86850; 86900; 86901; 87340; 90715; 99464; J0456; J0690; J1885; J2274; J2405; J2590; J2765; J7120